=== PATIENT | female | born 2000 | race Caucasian/White ===

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

== ENCOUNTER 2021-03-16 17:00 | Outpatient (RCR) | payer OTHER, SELFPAY ==
--- NOTE | 2021-01-03 18:01 | HP.PTEVAL ---
Patient's Visit Information SERENA PERRY is a 20 year old F referred to Physical Therapy by ADRIEN MAY with a diagnosis of R superior glenoid labral repair 12/12. Date of Evaluation: 01/03/21 Physical Therapist: Simone Moseley, DPT, OCS, CSCS - Visit Plan Frequency: 2x /Week Duration: 3 Months Plan: 2x/week for 10 weeks until return to school labor trainer. Focus on painfree and no muscle gaurding ROM and painfree isometric strength in neutral position. May do scar massage, ice,. If tolerating well, may progress to AROM 6/15 and stretching gently the following week. may do gentle manually resisted strength for next two weeks in neutral plane. may do painfree isotonic RC and throwers ten at end of december if no pain. Most important for December is to preserve the integrity of surgery, no aggressive strength or OP on ROM. No biceps strength until end of month and only if doing well at that point. Pt is well ahead of target on ROM protocols and no need to hurry this process at the expense of pain or risk. - Subjective April softball injury. Found tear in R labrum via MRI. Was likely from a throw. Had labral repair 12/12/20. In sling since, off now to rest. No pain since surgery. Had nerve block. Only too a couple pain meds. Squeezing ball and bending elbow and pendulums throughout day. Sleep is fine. Sling off to sleep. 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 In schoo at [employer] playing and had practice in fall. Has labor trainer at [place] and goes back March 17. Ran this spring and threw alot but it hurt, avni in August helped. Softball and studying ex physiology. Doctor said she could gradually get out of sling. - Pain R shoulder Pain Intensity (Out of 10): 0 Pain Intensity Range: 0 - Objective Walks in with sling with abductor wedge I and dons and doffs it I from R shoulder. Trasnfers I. No probems with mobiilty or balance. L UE AROM full and painfree with strength 4/5. R UE incisions are arthroscopic and healed well without redness heat or swelling. No drainage and only slight scar tissue at anterior incision. R UE aROM is to 150 flexion and abduction without pain and only slight pulling anterior, er to 90 with empty endfeel today, IR to 68 in supine at 80 abduction and slight pulling endfeel but no pain. Extension is fulla nd painfree. IR posterior is to L4 with slight pulling feeling. All ROM is very comfortable for patient without muscle gaurding or pain and no pulling end feel. elbow AROM is full and painfree on R. as is wrist and hand. no signs of swelling. strength elbow 3+ at biceps adn 4 at tri. wrist 4+ flex adn ext adn no pain. shoulder strength er 3+ adn IR 3+ without pain. flexiona nd abduction not tested. reflexes 2/3 UE bi and tri and sensation WNL to gross light touch - Goals Goal 1:: Full aROM R shoulder without pain Goal Time Frame: 2-4 Weeks Goal 2:: 4+/5 strength in R shoulder testing without pain Goal Time Frame: 6-8 Weeks Goal 3:: Plan to return to softball throwing and swinging as tolerated adn allowed Goal Time Frame: 8-12 Weeks Goal 4:: Quickdash score 13 or less Goal Time Frame: 4-6 Weeks - Rehabilitation Potential Physical Therapy Diagnosis: s/p labral repair R shoulder with corresponding decrease activity due to precautions. Rehabilitation Potential: Good - Anticipated Interventions Patient/Client Instruction: Educate patient on: Condition For the Purpose of:: To increase ROM, To improve muscle performance and motor function, To increase tolerance to activity/condition/position Therapeutic Exercise to Include: Strength training, Flexibilty training, Passive ROM, Active ROM, Scapular Strength/Stabilization For the Purpose of:: To increase ROM, To improve muscle performance and motor function, To increase tolerance to activity/condition/position, To improve ability of physical actions for home/community/work/leisure Manual Therapy Techniques to Include: Scar massage, Mobilization, Passive ROM, Soft tissue mobilization For the Purpose of:: To increase ROM, To improve nutrient delivery to tissue, To improve muscle performance and motor function Cryotherapy (ice pack, ice massage): Yes For the Purpose of:: To decrease swelling/inflammation Thank you for the opportunity to evaluate your patient. For Medicare and Medicare HMO plans, please review the plan of care and approve it. It will need to be FAXED BACK to us at [phone] for Medicare purposes. For Medicare only, by signing this I certify the plan of care. Please let me know if there are questions or concerns regarding this plan of care. Physician Signature: Date:
--- NOTE | 2021-01-17 17:26 | HP.PTREVAL_ITS ---
ADRIEN MAY, It has been my pleasure to treat SERENA PERRY over the last 5 visits for R superior glenoid labral repair 12/12. Please see the progress note below for an update on the physical therapy plan of care! Subjective: No pain and no problems with shoulder. 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 Doing home ROM exercises and strengthening core, legs and left UE at [facility]. Objective/Function: Full AROM without pain, full PROM without pain, slight tightness end range IR but no discomfort. Pt is doing extremely well with no pain and near full ROM. To doctor next week. Plan Plan: continue POC 1-2x/week for 4 weeks, pt to visit doctor next week, continue to progress strength(no bicpes yet) slowly and gentle ROM as body allows us to(gentle cross body stretch, gentle OH tricep strech). Ensure keeps full ROM and slow progression of forces. Goals Goal 1:: Full aROM R shoulder without pain Goal Time Frame: 2-4 Weeks Goal Progress: Goal Met Goal 2:: 4+/5 strength in R shoulder testing without pain Goal Time Frame: 6-8 Weeks Goal 3:: Plan to return to softball throwing and swinging as tolerated adn allowed Goal Time Frame: 8-12 Weeks Goal 4:: Quickdash score 13 or less Goal Time Frame: 4-6 Weeks Anticipated Interventions Patient/Client Instruction: Educate patient on: Condition For the Purpose of:: To increase ROM, To improve muscle performance and motor function, To increase tolerance to activity/condition/position Therapeutic Exercise to Include: Strength training, Flexibilty training, Passive ROM, Active ROM, Scapular Strength/Stabilization For the Purpose of:: To increase ROM, To improve muscle performance and motor function, To increase tolerance to activity/condition/position, To improve ability of physical actions for home/community/work/leisure Manual Therapy Techniques to Include: Scar massage, Mobilization, Passive ROM, Soft tissue mobilization For the Purpose of:: To increase ROM, To improve nutrient delivery to tissue, To improve muscle performance and motor function Cryotherapy (ice pack, ice massage): Yes For the Purpose of:: To decrease swelling/inflammation Please do not hesitate to contact me at [phone] by phone or if you have questions or concerns regarding this new plan of care! Sincerely, Simone Moseley, DPT, OCS, CSCS
--- NOTE | 2021-03-16 17:35 | HP.PTDCSUM_ITS ---
It has been my pleasure to treat SERENA PERRY referred by ADRIEN MAY, with the diagnosis of R superior glenoid labral repair 12/12 for a total of 18 visit(s). Discharge Date: 03/16/21 Please see the following information for a summary of their discharge status. Subjective: Doing allright adn rady to head off to school. No pain. Saw doctor and released to throwing program whcih she will start at school with the link trainer maintenance worker. R shoulder Pain Intensity (Out of 10): 0 % Improvement: 80 Objective/Function: Full aROM without pain today, Pt to cotninue progression with link trainer maintenance worker at school. BLAISE signed for link trainer maintenance worker to call. Goal 1:: Full aROM R shoulder without pain Goal Progress: Goal Met Goal 2:: 4+/5 strength in R shoulder testing without pain Goal Progress: Goal Met Goal 3:: Plan to return to softball throwing and swinging as tolerated adn allowed Goal Progress: released to throwing prog Goal 4:: Quickdash score 13 or less Goal Progress: Goal Met Plan: d/c Pt to continue workout and see trasiner at school. to have them call if questions. If there are questions or concerns regarding this patient's physical therapy, please feel free to call me at [phone]. Thank you for the referral of this patient. Sincerely, Simone Moseley, DPT, OCS, CSCS Balance/Gait/Functional tests - Balance/Special Test Scores Quick DASH Score: 2.2725
== END 2021-03-16 19:00 | disposition home or self-care (01) ==
LOC: PT 17:00
PROVIDERS: PCP Pediatrics
DX: S43.431D Superior glenoid labrum lesion of right shoulder, subsequent encounter (principal); X58.XXXD Exposure to other specified factors, subsequent encounter; Z09 Encounter for follow-up examination after completed treatment for conditions other than malignant neoplasm
CPT/HCPCS: 97110; 97140; 97161; 97530

== ENCOUNTER → 2023-01-08 | Outpatient (CLI) | payer OTHER, SELFPAY ==
[2023-01-14 23:14] LABS: HPV Reflexed? NOT INDICATED
== END | disposition home or self-care (01) ==
LOC: LABSPEC 11:39
PROVIDERS: PCP Pediatrics; Visit Provider Nurse Practitioner Women's Health
DX: Z12.4 Encounter for screening for malignant neoplasm of cervix (principal)
CPT/HCPCS: 88175; G0145